=== PATIENT | male | born 1970 | race Hispanic/Latino ===

== ENCOUNTER 2024-10-09 08:16 | Emergency (ER) | payer OTHER ==
[~2024-10-09] VITALS: Ht 165.1 cm; Wt 65.8 kg
[2024-10-09 08:17] VITALS: TEMP 98.5
--- NOTE | 2024-10-09 08:58 | ERN ---
ED Note History of Present Illness Stated Complaint: HTN Chief Complaint: Medical Clearance Time Seen by MD: 08:22 Dictation: 54-year-old male presents to the ED with [employer] for medical clearance. Portable to reports patient had a systolic blood pressure of 157. Patient has history of colon cancer with port receiving chemotherapy, colostomy with reversal. Past Medical History Past Medical History: Cancer, Other Additional Past Medical Hx: CHEMO 7 MONTHS AGO Surgical History: Other Surgical History Other: PORT A CATH Review of System Dictation Constitutional: Positive for high blood pressure Negative for fever,chills, and weight loss Eyes: Negative for injury, pain,redness, and discharge ENT: Negative for injury,pain or swelling Cardiovascular: Negative for chest pain, palpitations, and edema Respiratory: Negative for shortness of breath, cough, and wheezing, Abdomen/GI: Negative for abdominal pain, nausea, vomiting, diarrhea, and constipation Back: Negative for injury and pain : Negative for injury, bleeding and discharge MS/Extremity: Negative for injury and deformity Skin: Negative for rash, and discoloration Neuro: Negative for headache, weakness, numbness, tingling, and seizure Psych: Negative for suicide ideation, homicidal ideation, and hallucinations Initial Vital Sign VS Vital Signs Date Time Temp Pulse Resp B/P (MAP) Pulse Ox O2 Delivery O2 Flow Rate FiO2 10/09/24 08:17 98.4 109 18 157/100 98 10/09/24 08:42 Room Air* 0 21 Physical Exam Dictation General: awake, alert, NAD Head/Face: Normocephalic, atraumatic Eyes: PERRL, EOMI, vision at baseline ENT: oral cavity clear, TMs clear, no signs of infection Neck: Trachea midline, supple, no nuchal rigidity Cardiovascular: RRR, normal S1/S2, No MRGs, no JVD Respiratory: CTAB, no respiratory distress, No rales or wheezes Abdomen: Soft, non-tender, non-distended, normal bowel sounds, no guarding or rebound. Skin: Warm, dry, normal turgor, no rash MS/Extremity: Pulses equal, no cyanosis, neurovascular intact, FROM Neuro: COAx4, GCS 15, strength 5/5, CN 2-12 intact, normal cerebellar exam, normal gait, Psych: Normal behavior, mood, and affect normal Results (Laboratory/Radiology) Laboratory/Radiology Laboratory Tests Test 10/09/24 08:54 White Blood Count 12.9 K/uL (4.8-10.8) H Red Blood Count 5.07 MIL/uL (4.50-6.20) Hemoglobin 14.3 g/dL (14.0-18.0) Hematocrit 40.9 % (42-54) L Mean Corpuscular Volume 80.7 fL (79-99) Mean Corpuscular Hemoglobin 28.2 pg (27.0-33.0) Mean Corpuscular Hemoglobin Concent 35.0 g/dL (32.0-36.0) Red Cell Distribution Width 13.2 % (11.0-15.5) Platelet Count 290 K/uL (130-400) Mean Platelet Volume 10.2 fL (7.5-10.5) Immature Granulocyte % (Auto) 0.2 % (0-1) Neutrophils (%) (Auto) 92.1 % (40.0-77.0) H Lymphocytes (%) (Auto) 4.5 % (21.0-51.0) L Monocytes (%) (Auto) 3.0 % (3.0-13.0) Eosinophils (%) (Auto) 0.0 % (0.0-8.0) Basophils (%) (Auto) 0.2 % (0.0-5.0) Neutrophils # (Auto) 11.9 K/uL (1.8-7.7) H Lymphocytes # (Auto) 0.6 K/uL (1.0-4.8) L Monocytes # (Auto) 0.4 K/uL (0.1-1.0) Eosinophils # (Auto) 0.00 K/uL (0.00-0.70) Basophils # (Auto) 0.03 K/uL (0.00-0.20) Absolute Immature Granulocyte (auto 0.03 K/uL (0-1) Nucleated Red Blood Cells 0.0 % (0.0-0.19) White Cell Morphology Comment See comments Sodium Level 134 mmol/L (136-145) L Potassium Level 4.2 mmol/L (3.5-5.1) Chloride Level 99 mmol/L (101-111) L Carbon Dioxide Level 28 mmol/L (21-32) Blood Urea Nitrogen 18 mg/dL (7-18) Creatinine 0.9 mg/dL (0.5-1.3) Glomerular Filtration Rate Calc 101 mL/min (>90) Random Glucose 398 mg/dL (70-105) H Total Calcium 9.3 mg/dL (8.5-10.1) Total Bilirubin 0.5 mg/dL (0.2-1.0) Direct Bilirubin 0.1 mg/dL (0.0-0.3) Aspartate Amino Transf (AST/SGOT) 15 U/L (10-37) Alanine Aminotransferase (ALT/SGPT) 18 U/L (12-78) Alkaline Phosphatase 89 U/L (50-136) Total Creatine Kinase 247 U/L (21-232) H Total Protein 7.5 g/dL (6.0-8.3) Albumin 3.3 g/dL (3.5-5.0) L Labs Reviewed?: Yes ED Course ED Course Orders Procedure Category Date Status Time 12 Lead Ekg Tracing- EKG 10/09/24 Complete Technical 08:40 Basic Metabolic Panel LAB 10/09/24 Complete 08:40 Cbc With Differential LAB 10/09/24 Complete 08:40 Hepatic Function Panel LAB 10/09/24 Complete 08:40 Creatine Kinase, Total LAB 10/09/24 Complete 08:40 Insulin Regular, PHA 10/09/24 Complete Human 3ml (Humulin R 10:30 Clonidine Hcl 0.1 Mg PHA 10/09/24 Complete Tablet (Catapres 0. 11:00 Current Medications Medications (Trade) Dose Ordered Sig/Fili Route PRN Reason Start Time Stop Time Status Last Admin Dose Admin Clonidine HCl (CATApres 0.1 mg TAB) 0.1 mg ONCE ONCE PO 10/09/24 11:00 10/09/24 11:01 DC 10/09/24 11:02 Insulin Human Regular (humuLIN R 100 UNIT/ML 3ML) 10 unit ONCE ONCE SQ 10/09/24 10:30 10/09/24 10:31 DC 10/09/24 11:04 Vital Signs Date Time Temp Pulse Resp B/P (MAP) Pulse Ox O2 Delivery O2 Flow Rate FiO2 10/09/24 11:44 78 16 152/97 Room Air* 0 21 10/09/24 11:02 179/103 10/09/24 09:55 161/101 Room Air* 0 21 10/09/24 09:00 174/99 Room Air* 0 21 10/09/24 08:42 17 192/112 Room Air* 0 21 10/09/24 08:17 98.4 109 18 157/100 98 Medical Decision Making MDM MDM: Differential diagnosis: Medical clearance, hypertension, hyperglycemia Previous outside records reviewed: Old ER visits. Need for hospitalization: Patient does not meet criteria for hospitalization. Need for emergency major/minor surgery: No Patient's prior external medical records from other ER visits were reviewed by me as indicated. Prior testing and results from previous visits were reviewed. Prior tests were taken into account with medical decision making and resource utilization, independent historian/historians were used to obtain complete medical history. I independently interpreted the test that were performed, results were reviewed by me and considered findings on radiology if ordered. Medical management and examination interpretation discussions were had by me with other qualified healthcare professionals as indicated for the patient's care. DX & DISP Disposition: Discharge Departure Impression: Primary Impression: Hypertension Additional Impression: Hyperglycemia Condition: Stable I have reviewed, & agreed with my scribe's, documentation. (Entered by Raquel Calvo, acting as a scribe for Dr. Locke) I personally scribed for KRISTA LOCKE MD ([email or web address]) on 10/09/24 at 08:58. Electronically submitted by Raquel Calvo ([email or web address]). KRISTA LOCKE MD Oct 09, 2024 08:58
--- NOTE | 2024-10-09 08:59 | NUR ---
ADDITIONAL MEDICAL HX: COLECTOMY W/OSTOMY AND REVERSAL OF OSTOMY. PORTACATH TO L UPPER CHEST WALL HTN
[2024-10-09 09:07] LABS: BASOPHILS # (AUTO) 0.03 K/uL (0.00-0.20); BASOPHILS % (AUTO) 0.2 % (0.0-5.0); HEMATOCRIT 40.9 % (42-54); IMMATURE GRANULOCYTE ABSOLUTE 0.03 K/uL (0-1); LYMPHOCYTES # (AUTO) 0.6 K/uL (1.0-4.8); LYMPHOCYTES % (AUTO) 4.5 % (21.0-51.0); MEAN CORPUSCULAR HEMOGLOBIN 28.2 pg (27.0-33.0); MEAN CORPUSCULAR VOLUME 80.7 fL (79-99); MONOCYTES # (AUTO) 0.4 K/uL (0.1-1.0); NEUTROPHILS # (AUTO) 11.9 K/uL (1.8-7.7); NEUTROPHILS % (AUTO) 92.1 % (40.0-77.0); PLATELET COUNT (AUTO) 290 K/uL (130-400); RED BLOOD CELL COUNT(AUTO) 5.07 MIL/uL (4.50-6.20); RED CELL DISTRIBUTION WIDTH 13.2 % (11.0-15.5); WHITE BLOOD COUNT (AUTO) 12.9 K/uL (4.8-10.8)
[2024-10-09 09:17] LABS: CREATININE 0.9 mg/dL (0.5-1.3); POTASSIUM 4.2 mmol/L (3.5-5.1)
[2024-10-09 09:22] LABS: ALBUMIN 3.3 g/dL (3.5-5.0); BILIRUBIN,DIRECT 0.1 mg/dL (0.0-0.3); BILIRUBIN,TOTAL 0.5 mg/dL (0.2-1.0); TOTAL PROTEIN, SERUM 7.5 g/dL (6.0-8.3)
--- NOTE | 2024-10-09 10:18 | EKG ---
[facility] Test Date: 2024-10-09 Test Time: 09:24:21 Pat Name: ISRAEL ARMENDARIZ Department: [facility] Patient ID: [facility] [id number] Room: Gender: Activities Manager: [id number] : 1970 Requested By: KRISTA LOCKE Order Number: [id number] Reading MD: Tyler Carter Measurements Intervals [place] Rate: 93 P: 76 [place]: 154 QRS: 75 QRSD: 87 T: 46 QT: 350 QTc: 436 Interpretive Statements Sinus rhythm No previous ECG available for comparison Electronically Signed On 10-09-2024 19:18:11 MANAGER MUSIC by Tyler Carter Please click the below link to view image of tracing.
[2024-10-09] MEDS: cloNIDine HCL 0.1 MG TABLET PO ONE (11:02)
[2024-10-09] MEDS: INSULIN humuLIN R 100 UNIT/ML 3ML SQ ONE (11:04)
[2024-10-09 11:44] VITALS: BP 152/97; PULSE 78; RESP 16
== END 2024-10-09 11:45 | disposition home or self-care (01) ==
LOC: EDH 08:16 → EEVIPCON 08:16 → EDH 11:45
DX: I10 Essential (primary) hypertension (principal); R73.9 Hyperglycemia, unspecified; Z98.890 Other specified postprocedural states
CPT/HCPCS: 99285; 82550; 80076; 80048; 85025; 36415; 96372; 93005; J1815